=== PATIENT | female | born 1970 | race African-American/Black ===

== ENCOUNTER 2019-03-10 07:46 | Day surgery (SDC) | payer MEDICAID ==
[~2019-03-10] VITALS: Ht 157.5 cm; Wt 82.6 kg
[2019-03-10] MEDS ORDERED: CARV6.2548 MT (08:36)
[2019-03-10] MEDS ORDERED: ATOR40TA70 MT (08:36)
[2019-03-10] MEDS ORDERED: COR6 MT (08:36)
[2019-03-10] MEDS ORDERED: ASPI-1393 MT (08:36)
[2019-03-10] MEDS ORDERED: SACU1TAB MT (08:36)
[2019-03-10 08:51] LABS: HEMATOCRIT 35.5 % (36.0-48.0); HEMOGLOBIN 11.8 g/dL (12.0-16.0); MEAN CORPUSCULAR HEMOGLOBIN 29.3 pg (28.0-32.0); MEAN CORPUSCULAR VOLUME 88.5 fL (81.0-99.0); PLATELET 267 x1000/uL (130-400); RED BLOOD CELL COUNT 4.01 mill/uL (4.2-5.4); RED CELL DISTRIBUTION WIDTH 13.6 % (11.6-14.6)
[2019-03-10 08:58] LABS: PROTHROMBIN TIME 10.4 sec (9.6-11.0)
[2019-03-10 09:00] LABS: CHLORIDE 109 mEq/L (98-107)
[2019-03-10] MEDS ORDERED: NICARDIPINE 100MCG/ML 10ML VIAL (CATH LAB) IV ONE (10:29)
[2019-03-10] MEDS ORDERED: NITROGLYCERIN 50MCG/ML 10ML VIAL (CATH LAB) IV ONE (10:29)
[2019-03-10] MEDS ORDERED: HEPARIN SODIUM 1,000 UNIT/1ML VIAL IV ONE (10:29)
[2019-03-10] MEDS ORDERED: MIDAZOLAM HCL 2 MG/2 ML VIAL ONE (10:30)
[2019-03-10] MEDS ORDERED: IODIXANOL 320MG/ML 100 ML BOTTLE IV ONE (10:31)
[2019-03-10] MEDS ORDERED: LIDOCAINE HCL 1% 20ML VIAL (Pyxis) INJ ONE (10:31)
[2019-03-10] MEDS ORDERED: FENTANYL CITRATE/PF 50MCG/ML 2ML VIAL ONE (10:31)
[2019-03-10] MEDS ORDERED: ONDANSETRON HCL 4MG/2ML INJ IV PRN (12:00)
[2019-03-10] MEDS ORDERED: ACETAMINOPHEN 325MG TABLET PO PRN (12:00)
[2019-03-10] MEDS ORDERED: MORPHINE SULFATE 2 MG/ML CPJ (NOT FOR IM USE) IV PRN (12:00)
== END 2019-03-10 15:40 | disposition home or self-care (01) ==
LOC: CCL 07:46
PROVIDERS: ATTEND Internal Medicine Cardiovascular Disease
DX: I42.9 Cardiomyopathy, unspecified (principal); I11.0 Hypertensive heart disease with heart failure; I50.9 Heart failure, unspecified; R93.1 Abnormal findings on diagnostic imaging of heart and coronary circulation; M32.9 Systemic lupus erythematosus, unspecified
CPT/HCPCS: 36415; 80048; 85027; 85610; 85730; 93458; C1769; C1887; C1893; J1644; J2250; J3010; J3490; Q9967

== ENCOUNTER 2019-06-15 08:17 | Inpatient (IN) | payer MEDICAID ==
[2019-06-15] VITALS (10 sets, daily range): BP systolic 95–120; BP diastolic 50–86
[~2019-06-15] VITALS: Ht 170.2 cm; Wt 93.2 kg
[~2019-06-15 08:17] MED LIST: ASPI-1393 MT; ATOR40TA70 MT; CARV6.2548 MT; COR6 MT; SACU1TAB MT
[2019-06-15 09:56] LABS: CHLORIDE 109 mEq/L (98-107)
[2019-06-15 09:57] LABS: PROTHROMBIN TIME 10.6 sec (9.6-11.0)
[2019-06-15 10:04] LABS: HCG SCREEN NEGATIVE
[2019-06-15 10:07] LABS: HEMATOCRIT 34.1 % (36.0-48.0); HEMOGLOBIN 11.4 g/dL (12.0-16.0); MEAN CORPUSCULAR HEMOGLOBIN 28.7 pg (28.0-32.0); MEAN CORPUSCULAR VOLUME 86.3 fL (81.0-99.0); PLATELET 220 x1000/uL (130-400); RED BLOOD CELL COUNT 3.96 mill/uL (4.2-5.4); RED CELL DISTRIBUTION WIDTH 14.2 % (11.6-14.6)
[2019-06-15] MEDS ORDERED: GENTAMICIN SULF 40MG/ML 2ML VIAL ONE (10:09)
[2019-06-15] MEDS ORDERED: CEFAZOLIN 1000MG PREMIX 100 ML IV ONE (10:10)
[2019-06-15] MEDS ORDERED: LIDOCAINE HCL 1% 20ML VIAL (Pyxis) INJ ONE (10:10)
[2019-06-15] MEDS ORDERED: GENTAMICIN/NS IRRIGATION 500 ML IR ONE (10:10)
[2019-06-15] MEDS ORDERED: IODIXANOL 320MG/ML 100 ML BOTTLE IV ONE (10:10)
[2019-06-15] MEDS ORDERED: BUPIVACAINE HCL/PF 0.75% (7.5MG/ML) 10ML INJ ONE (10:30)
[2019-06-15] MEDS ORDERED: DIPHENHYDRAMINE 50MG/ML VIAL ONE (10:38)
[2019-06-15] MEDS ORDERED: FENTANYL CITRATE/PF 50MCG/ML 2ML VIAL ONE (10:48)
[2019-06-15] MEDS ORDERED: MIDAZOLAM HCL 2 MG/2 ML VIAL ONE ×3 (10:48→12:50)
[2019-06-15] MEDS ORDERED: CARVEDILOL 6.25 MG TABLET PO SCH (17:00)
[2019-06-15] MEDS: HYDROCODONE/ACETAMINOPHEN 5/325MG TABLET PO PRN (18:08)
[2019-06-15] MEDS: CARVEDILOL 6.25 MG TABLET PO SCH (21:00)
[2019-06-15] MEDS: ATORVASTATIN CALCIUM 40MG TABLET PO SCH (21:58)
[2019-06-16] VITALS (14 sets, daily range): BP systolic 90–145; BP diastolic 59–93
[2019-06-16] MEDS: HYDROCODONE/ACETAMINOPHEN 5/325MG TABLET PO PRN ×2 (05:08→11:59)
[2019-06-16 06:48] LABS: BASOPHILS % 0.7 % (0.0-2.0); EOSINOPHILS % 2.4 % (0.0-5.0); HEMATOCRIT. 34.1 % (36.0-48.0); HEMOGLOBIN. 11.2 g/dL (12.0-16.0); LYMPHOCYTES % 37.3 % (20.0-50.0); MEAN CORPUSCULAR HEMOGLOBIN 28.7 pg (28.0-32.0); MEAN CORPUSCULAR VOLUME 87.6 fL (81.0-99.0); MEAN PLATELET VOLUME 9.7 fl (7.4-10.4); MONOCYTES % 12.3 % (2.0-8.0); NEUTROPHILS % 47.3 % (40.0-76.0); PLATELET 139 x1000/uL (130-400); RED CELL DISTRIBUTION WIDTH 14.2 % (11.6-14.6)
[2019-06-16 07:05] LABS: CHLORIDE 109 mEq/L (98-107)
[2019-06-16] MEDS: CARVEDILOL 6.25 MG TABLET PO SCH ×2 (09:00→21:00)
[2019-06-16] MEDS: ASPIRIN 81MG EC TABLET PO SCH (09:23)
[2019-06-16] MEDS: ACETAMINOPHEN 650MG/20.3ML UDC PO PRN (19:56)
[2019-06-16 21:06] LABS: HEMATOCRIT 33.6 % (36.0-48.0); HEMOGLOBIN 11.2 g/dL (12.0-16.0); MEAN CORPUSCULAR HEMOGLOBIN 28.9 pg (28.0-32.0); MEAN CORPUSCULAR VOLUME 86.8 fL (81.0-99.0); RED BLOOD CELL COUNT 3.87 mill/uL (4.2-5.4); RED CELL DISTRIBUTION WIDTH 13.9 % (11.6-14.6)
[2019-06-16] MEDS: ATORVASTATIN CALCIUM 40MG TABLET PO SCH (21:51)
[2019-06-17] VITALS (7 sets, daily range): BP systolic 111–146; BP diastolic 60–87
[2019-06-17] MEDS: ACETAMINOPHEN 650MG/20.3ML UDC PO PRN ×2 (01:55→08:18)
[2019-06-17] MEDS: CARVEDILOL 6.25 MG TABLET PO SCH (08:18)
[2019-06-17] MEDS: ASPIRIN 81MG EC TABLET PO SCH (08:18)
== END 2019-06-17 10:30 | disposition home or self-care (01) | DRG 177 ==
LOC: CCL 08:17 → 3WST 08:18
PROVIDERS: ADMIT Internal Medicine Clinical Cardiac Electrophysiology; ATTEND Internal Medicine Clinical Cardiac Electrophysiology
PROC: 02H63KZ Insertion of Defibrillator Lead into Right Atrium, Percutaneous Approach (ICD-10-PCS; principal; 2019-06-15)
PROC: 4A023N6 Measurement of Cardiac Sampling and Pressure, Right Heart, Percutaneous Approach (ICD-10-PCS; 2019-06-15)
PROC: B2111ZZ Fluoroscopy of Multiple Coronary Arteries using Low Osmolar Contrast (ICD-10-PCS; 2019-06-15)
PROC: 02HK3KZ Insertion of Defibrillator Lead into Right Ventricle, Percutaneous Approach (ICD-10-PCS; 2019-06-15)
DX: I11.0 Hypertensive heart disease with heart failure (principal); I42.0 Dilated cardiomyopathy; M32.9 Systemic lupus erythematosus, unspecified; I50.22 Chronic systolic (congestive) heart failure; F14.10 Cocaine abuse, uncomplicated; Z87.891 Personal history of nicotine dependence; F10.21 Alcohol dependence, in remission; E78.5 Hyperlipidemia, unspecified
CPT/HCPCS: 33249; 36415; 71045; 75820; 80048; 84703; 85027; 93005; 93451; 93640; C1722; C1892; C1893; C1899; J0690; J1200; J1580; J1644; J2250; J3010; J3490; Q9967

== ENCOUNTER 2023-03-12 11:03 | Emergency (ER) | payer MEDICAID ==
[~2023-03-12] VITALS: Ht 165.1 cm; Wt 107.0 kg
[~2023-03-12 11:03] MED LIST changes: -ASPI-1393 MT; +ASPI-1497 MT
[2023-03-12 11:13] VITALS: BP 137/77; PULSE 78; RESP 18; TEMP 98.1; O2SAT 100
[2023-03-12] MEDS ORDERED: ACETAMINOPHEN 325MG TABLET PO SCH (13:49)
[2023-03-12] MEDS ORDERED: NAPR-681 PO (16:11)
== END 2023-03-12 16:25 | disposition home or self-care (01) ==
LOC: ER 11:03
DX: S16.1XXA Strain of muscle, fascia and tendon at neck level, initial encounter (principal); S00.93XA Contusion of unspecified part of head, initial encounter; S39.012A Strain of muscle, fascia and tendon of lower back, initial encounter; I11.0 Hypertensive heart disease with heart failure; I50.9 Heart failure, unspecified; Z98.890 Other specified postprocedural states; V49.9XXA Car occupant (driver) (passenger) injured in unspecified traffic accident, initial encounter; Y93.89 Activity, other specified; Y92.89 Other specified places as the place of occurrence of the external cause; Y99.8 Other external cause status
CPT/HCPCS: 72100; 99284